=== PATIENT | female | born 1985 | race African-American/Black ===

== ENCOUNTER 2019-02-28 | Emergency (ER) | payer SELFPAY ==
[~2019-02-28] MED LIST: DEP0PROVERA IM; NAPROXEN500 MG PO; PREDNISONE20 MG OR; PROAIR HFA IN
[2019-02-28] MEDS ORDERED: CEPHALEXIN500 M1 PO (07:40)
[2019-03-01] LABS: IMMATURE GRANULOCYTES 0.4 % (0.0-5.0); MEAN CORPUSCULAR HGB 30.7 pG CALC (26.0-32.0); MEAN CORPUSCULAR HGB CONC 32.5 g/L CALC (32.0-36.0); NEUT# 7.36 thou/uL (2.00-7.15); RED BLOOD COUNT 4.24 mill/uL (4.20-5.60); RED CELL DISTRI WIDTH 13.2 % (11.5-15.5)
[2019-03-01 00:10] LABS: BILIRUBIN, TOTAL 0.3 mg/dL (0.0-1.4); BUN 13 mg/dL (7-17); BUN/CREATININE RATIO 12 (12-20 (CALC)); CHLORIDE 102 mmol/l (95-108); CREATININE 1.1 mg/dL (0.5-1.0); GFR 58 ML/MIN (>=60 (CALC)); GFR FOR AFR.AMER. > 60 ML/MIN (>=60 (CALC)); POTASSIUM 3.9 mmol/l (3.5-5.1); SGOT/AST 19 u/l (14-36); SODIUM 138 mmol/l (137-146)
[2019-03-01 00:11] LABS: ALBUMIN 4.6 g/dL (3.2-5.0); ALKALINE PHOSPHATASE 65 u/l (38-126); ANION GAP 14 (6-22 (CALC)); CARBON DIOXIDE 26 mmol/l (22-30); TOTAL PROTEIN 8.2 g/dL (6.3-8.2)
[2019-03-01 00:14] LABS: MEAN CELL VOLUME 94.3 fL CALC (80.0-100.0)
[2019-03-01] MEDS ORDERED: PERCOCET 5/325M1 TAB PO (01:02)
[2019-03-01] MEDS ORDERED: BENADRYL 50MG C50 MG PO (01:02)
[2019-03-01 01:31] LABS: URINE BILIRUBIN - DIPSTICK NEGATIVE (NEGATIVE); URINE BLOOD DIPSTICK NEGATIVE (NEGATIVE); URINE COLOR YELLOW; URINE GLUCOSE - DIPSTICK NEGATIVE (NEGATIVE); URINE KETONE NEGATIVE (NEGATIVE); URINE LEUK ESTERASE NEGATIVE (NEGATIVE); URINE NITRITE - DIPSTICK NEGATIVE (Negative); URINE PROTEIN - DIPSTICK NEGATIVE (NEG-TRACE); URINE SPECIFIC GRAVITY 1.025; URINE UROBILINOGEN - DIPSTICK 0.2 E.U./dL (0.2)
== END 2019-03-01 01:17 | disposition home or self-care (01) ==
PROVIDERS: Emergency Medicine
DX: L03.312 Cellulitis of back [any part except buttock and flank] (principal); S20.462A Insect bite (nonvenomous) of left back wall of thorax, initial encounter; W57.XXXA Bitten or stung by nonvenomous insect and other nonvenomous arthropods, initial encounter

== ENCOUNTER 2019-02-28 | Emergency (ER) | payer MEDICAID ==
[2019-02-28] MEDS ORDERED: CEPHALEXIN500 M1 PO (07:40)
[2019-03-01] MEDS ORDERED: BENADRYL 50MG C50 MG PO (01:02)
[2019-03-01] MEDS ORDERED: PERCOCET 5/325M1 TAB PO (01:02)
== END 2019-02-28 08:14 | disposition home or self-care (01) ==
DX: L03.312 Cellulitis of back [any part except buttock and flank] (principal); S20.462A Insect bite (nonvenomous) of left back wall of thorax, initial encounter; W57.XXXA Bitten or stung by nonvenomous insect and other nonvenomous arthropods, initial encounter

== ENCOUNTER 2019-11-24 15:31 | Emergency (ER) | payer MEDICAID ==
[~2019-11-24] VITALS: Ht 180.3 cm; Wt 100.0 kg
[~2019-11-24 15:31] MED LIST changes: +BENADRYL 50MG C50 MG PO; +CEPHALEXIN500 M1 PO; +PERCOCET 5/325M1 TAB PO
[2019-11-24 16:33] LABS: HEMOGLOBIN 12.5 g/dl (12.0-16.0); IMMATURE GRANULOCYTES 0.3 % (0.0-5.0); MEAN CELL VOLUME 93.1 fL CALC (80.0-100.0); MEAN CORPUSCULAR HGB 30.6 pG CALC (26.0-32.0); MEAN CORPUSCULAR HGB CONC 32.9 g/dL CAL (32.0-36.0); NEUT# 6.64 thou/uL (2.00-7.15); RED BLOOD COUNT 4.08 mill/uL (4.20-5.60); RED CELL DISTRI WIDTH 13.2 % (11.5-15.5)
[2019-11-24 16:51] LABS: ALBUMIN 4.3 g/dL (3.2-5.0); ALKALINE PHOSPHATASE 57 u/l (38-126); ANION GAP 12 (6-22 (CALC)); BILIRUBIN, TOTAL 0.2 mg/dL (0.0-1.4); BUN 10 mg/dL (7-17); BUN/CREATININE RATIO 15 (12-20 (CALC)); CARBON DIOXIDE 25 mmol/l (22-30); CHLORIDE 101 mmol/l (95-108); CREATININE 0.6 mg/dL (0.5-1.0); GFR > 60 ML/MIN (>=60 (CALC)); GFR FOR AFR.AMER. > 60 ML/MIN (>=60 (CALC)); POTASSIUM 3.8 mmol/l (3.5-5.1); SGOT/AST 20 u/l (14-36); SODIUM 135 mmol/l (137-146); TOTAL PROTEIN 7.7 g/dL (6.3-8.2)
[2019-11-24 17:37] LABS: URINE BILIRUBIN - DIPSTICK NEGATIVE (NEGATIVE); URINE BLOOD DIPSTICK NEGATIVE (NEGATIVE); URINE CLARITY CLEAR; URINE COLOR YELLOW; URINE GLUCOSE - DIPSTICK NEGATIVE (NEGATIVE); URINE KETONE NEGATIVE (NEGATIVE); URINE LEUK ESTERASE NEGATIVE (Negative); URINE NITRITE - DIPSTICK NEGATIVE (Negative); URINE PROTEIN - DIPSTICK NEGATIVE (NEG-TRACE); URINE SPECIFIC GRAVITY >=1.030; URINE UROBILINOGEN - DIPSTICK 0.2 E.U./dL (0.2)
[2019-11-24 18:14] VITALS: BP 148/79
== END 2019-11-24 18:24 | disposition home or self-care (01) ==
LOC: ED 15:31
PROVIDERS: Physician Assistant Surgical
DX: O20.0 Threatened abortion (principal); Z3A.00 Weeks of gestation of pregnancy not specified

== ENCOUNTER 2019-11-26 15:33 | Emergency (ER) | payer MEDICAID ==
[~2019-11-26] VITALS: Ht 180.3 cm; Wt 100.0 kg
[2019-11-26 16:44] LABS: HEMATOCRIT 38.1 % (37.0-47.0); HEMOGLOBIN 12.7 g/dl (12.0-16.0); IMMATURE GRANULOCYTES 0.3 % (0.0-5.0); MEAN CELL VOLUME 93.2 fL CALC (80.0-100.0); MEAN CORPUSCULAR HGB 31.1 pG CALC (26.0-32.0); MEAN CORPUSCULAR HGB CONC 33.3 g/dL CAL (32.0-36.0); NEUT# 5.62 thou/uL (2.00-7.15); RED BLOOD COUNT 4.09 mill/uL (4.20-5.60); RED CELL DISTRI WIDTH 13.2 % (11.5-15.5)
[2019-11-26 17:07] LABS: ALBUMIN 4.1 g/dL (3.2-5.0); ALKALINE PHOSPHATASE 50 u/l (38-126); ANION GAP 12 (6-22 (CALC)); BILIRUBIN, TOTAL 0.2 mg/dL (0.0-1.4); BUN 7 mg/dL (7-17); BUN/CREATININE RATIO 13 (12-20 (CALC)); CARBON DIOXIDE 25 mmol/l (22-30); CHLORIDE 101 mmol/l (95-108); CREATININE 0.6 mg/dL (0.5-1.0); GFR > 60 ML/MIN (>=60 (CALC)); GFR FOR AFR.AMER. > 60 ML/MIN (>=60 (CALC)); POTASSIUM 3.8 mmol/l (3.5-5.1); SGOT/AST 19 u/l (14-36); SODIUM 134 mmol/l (137-146); TOTAL PROTEIN 7.5 g/dL (6.3-8.2)
[2019-11-26 17:24] LABS: BETA-HCG, QUANT(RESULT NUMBER) 7029 mIU/mL
[2019-11-26 18:01] VITALS: BP 130/80
== END 2019-11-26 18:12 | disposition home or self-care (01) ==
LOC: ED 15:33
PROVIDERS: Family Medicine
DX: O26.30 Retained intrauterine contraceptive device in pregnancy, unspecified trimester (principal); Z3A.00 Weeks of gestation of pregnancy not specified

== ENCOUNTER 2022-07-29 10:58 | Emergency (ER) | payer MEDICAID ==
[~2022-07-29] VITALS: Ht 180.3 cm; Wt 95.6 kg
[2022-07-29] VITALS (8 sets, daily range): BP systolic 132–146; BP diastolic 88–96
[2022-07-29] MEDS ORDERED: AMOXICILLIN500 M2 PO (12:44)
[2022-07-30] MEDS ORDERED: DIFLUCAN150 MG PO (11:35)
[2022-07-30] MEDS ORDERED: CYCLOBENZAPRINE10 MG PO (11:35)
== END 2022-07-29 13:07 | disposition home or self-care (01) ==
LOC: ED 10:58
DX: J06.9 Acute upper respiratory infection, unspecified (principal); Z20.822 Contact with and (suspected) exposure to COVID-19